=== PATIENT | male | born 1960 | race Caucasian/White ===

== ENCOUNTER → 2017-05-10 15:03 | Outpatient (CLI) | payer OTHER, SELFPAY ==
--- NOTE | 2017-05-10 15:17 | XR_ITS ---
EXAM: XR lumbar spine min 4V HISTORY: ITS.REASON: RT SCIATICA ORDERING PHYSICIAN: Desirae Tai PATIENT AGE: 56 years COMPARISON: None FINDINGS: There is severe degenerative disc disease at L2-L3 with mild retrolisthesis of L2 3 mm and kyphosis at that level. There is endplate sclerosis and osteophyte formation anteriorly. There is mild degenerative disc disease at L1-L2. No bony destructive process. No acute fracture. IMPRESSION: Severe degenerative disc disease at L2-L3 with kyphosis Mild degenerative disc disease L1-L2
== END ==
PROVIDERS: PCP Nurse Practitioner; Visit Provider Nurse Practitioner
DX: M54.41 Lumbago with sciatica, right side (principal)
CPT/HCPCS: 72110

== ENCOUNTER 2017-06-25 15:30 | Outpatient (RCR) | payer OTHER, SELFPAY ==
--- NOTE | 2017-05-20 09:56 | HMH.PTOPEV ---
Rehab Outpatient Evaluation Rehab OP Evaluation Start: 05/20/17 09:39 Freq: Status: Active Protocol: Document 05/20/17 09:40 CONNIE (Rec: 05/20/17 09:56 CONNIE [id number]) Electronically Signed By Logan Ferreira, PT 05/20/17 09:40 Outpatient Therapy Subjective History Subjective History Pt reports h/o chronic LBP w/ multiple exacerbations since the beginning of 2017. Pt reports R > L sided LBP with R LE radicular s/s from hip to ankle, as well as intermittent L calf mm area s/s. Pt reports recent Xrays were reported to reveal 'severe arthritis' in the low back. Chief Complaint Pain Stiff Paresthesia Symptom Type Ache Throb Sharp Dull Stabbing Burning Numbness Tingling Shooting Symptoms Relieved By OTC Meds Prescription Meds Symptoms Aggravated By Standing Physical Activity Walking Lifting Prior Functional Limitations Lifting Housework Standing Sitting Walking Current Functional Limitations Lifting Housework Standing Sitting Walking Symptom Description Constant but Variable Level of pain today (0-10) 3 Pain scale - at its best (0-10) 2 Pain scale - at its worst (0-10) 8 Lumbopelvic Eval Posture Thoracic Spine Posture Standing Position Neutral Lumbar Spine Posture Standing Position Flattened Assistive device Assistive Devices None / NA Palapation tenderness right lumbar spinal tenderness Yes: 2/4 paraspinal tenderness Yes: 3/4 buttock tenderness Yes: 3/4 Accessory Movement L2 bilateral L3 bilateral L4 bilateral L5 bilateral Range of Motion Lumbar Spine Active Flexion Range of 0-60 Motion (degrees)
== END 2017-06-25 15:31 | disposition home or self-care (01) ==
LOC: PT 15:30
PROVIDERS: Family Provider Nurse Practitioner; PCP Nurse Practitioner; Visit Provider Nurse Practitioner
DX: M54.31 Sciatica, right side (principal)
CPT/HCPCS: 97010; 97012; 97014; 97110; 97164; G0283

== ENCOUNTER → 2017-07-07 13:24 | Outpatient (CLI) | payer OTHER, SELFPAY ==
--- NOTE | 2017-07-07 13:27 | MR_ITS ---
MR lumbar spine wo con, MR 3-d myelogram/MRCP HISTORY: Bilateral Leg pain and burning. Rt sided LBP. ITS.REASON: SCIATICA OF RIGHT SIDE, DDD ORDERING PHYSICIAN: Desirae Tai PATIENT AGE: 56 years COMPARISON: X-Ray 05-10-17 TECHNIQUE: Standard multiplanar multiecho sequences are performed without contrast. 3-D MIP and myelographic images are also rendered and reviewed FINDINGS: The spinal cord ends at the L1 level. There is multilevel degenerative disc disease as outlined below. L1-L2: Degenerative disc disease with mild facet and ligamentum flavum hypertrophy. L2-L3: Severe degenerative disc disease with bulging disc along with facet and ligamentum hypertrophy. Anterior osteophytes are present at this level. Facet and ligamentum hypertrophy result in bilateral lateral recess and foraminal narrowing slightly greater on the right. Endplate sclerosis with subcortical cystic changes and slight reversal of the lumbar lordosis at this level. L3-L4: Mild facet and ligamentum hypertrophy with mild bilateral lateral recess and foraminal narrowing. L4-5: Minimal bulging disc slightly eccentric toward the left along with facet and ligamentum hypertrophy with bilateral lateral recess and foraminal narrowing. A small area of increased T2 signal is present along the anterior aspect of the thecal sac on the right contiguous with the disc suggesting a small right paracentral disc herniation with inferior extrusion contributing to the lateral recess narrowing. This abuts the L5 nerve root. This is best seen on the sagittal images. L5-S1: Degenerative disc disease with concentric bulging disc along with facet and ligamentum hypertrophy with moderate bilateral foraminal narrowing. There is narrowing of the canal at this level at 10 mm. IMPRESSION: 1. Multilevel lumbar spondylosis with degenerative disc disease with bulging disc along with facet and ligamentum hypertrophy with varying areas of lateral recess and foraminal narrowing. Please see above for detailed description at each level. 2. L2-L3: Severe degenerative disc disease with bulging disc along with facet and ligamentum hypertrophy. Anterior osteophytes are present at this level. Facet and ligamentum hypertrophy result in bilateral lateral recess and foraminal narrowing slightly greater on the right. 3. L4-5: Minimal bulging disc slightly eccentric toward the left along with facet and ligamentum hypertrophy with bilateral lateral recess and foraminal narrowing. A small area of increased T2 signal is present along the anterior aspect of the thecal sac on the right contiguous with the disc suggesting a small right paracentral disc herniation with inferior extrusion contributing to the lateral recess narrowing. This abuts the L5 nerve root. This is best seen on the sagittal images. 4. L5-S1: Degenerative disc disease with concentric bulging disc along with facet and ligamentum hypertrophy with moderate bilateral foraminal narrowing. There is narrowing of the canal at this level at 10 mm.
== END ==
PROVIDERS: Family Provider Nurse Practitioner; PCP Nurse Practitioner; Visit Provider Nurse Practitioner
DX: M54.31 Sciatica, right side (principal); M51.36 Other intervertebral disc degeneration, lumbar region
CPT/HCPCS: 72148; 76376

== ENCOUNTER → 2019-08-14 09:35 | Outpatient (CLI) | payer OTHER, SELFPAY ==
--- NOTE | 2019-08-14 09:46 | XR_ITS ---
PROCEDURE: XR SHOULDER LT MIN 2V CLINICAL INDICATION: shoulder pain COMPARISON: No exams were available for comparison FINDINGS: No fracture or dislocation. No lytic or blastic change. There is normal mineralization. The joint spaces are well-preserved. No significant degenerative/arthritic changes. No erosive changes evident. Other findings:None. IMPRESSION: No acute findings. Dictated by: Edi Cruz MD 08/14/2019 13:57 Electronically signed by Edi Cruz MD in [place] 08/14/2019 13:57
== END ==
PROVIDERS: PCP Family Medicine; Visit Provider Orthopaedic Surgery
DX: M25.512 Pain in left shoulder (principal)
CPT/HCPCS: 73030

== ENCOUNTER → 2019-09-25 16:51 | Outpatient (CLI) | payer OTHER, SELFPAY ==
[2019-09-27 15:23] LABS: Covid-19 Nasal PCR Sendout Lex NOT DETECTED
== END ==
PROVIDERS: PCP Family Medicine; Visit Provider Family Medicine
DX: Z03.818 Encounter for observation for suspected exposure to other biological agents ruled out (principal)
CPT/HCPCS: U0004

== ENCOUNTER → 2019-10-17 12:50 | Outpatient (CLI) | payer OTHER, SELFPAY ==
--- NOTE | 2019-10-17 13:14 | MR_ITS ---
PROCEDURE: MR SHOULDER LT W CON CLINICAL INDICATION: shoulder pain Shoulder pain [id number]. Been going to physical therapy. No injury. Pain when raising arm above head and when doing activities. Prior x-ray 08/14/2019 COMPARISON: CR XR SHOULDER LT MIN 2V from 08/14/2019 TECHNIQUE: Routine multiplanar multi echo sequences are performed following the intra-articular injection of contrast. FINDINGS: There is no evidence of abnormal localization of contrast that would indicate a complete rotator cuff tear. There is some irregularity of the undersurface the supraspinatus tendon distally consistent with a partial tear along the posterior and distal aspect. The infraspinatus, subscapularis, and teres minor tendons are intact. No evidence labral tear. The bicipital tendon is in place. There is mild acromioclavicular arthropathy with mild subacromial stenosis. There is some increased T2 signal involving the supraspinatus tendon suggesting tendinopathy/tendinosis. IMPRESSION: 1. Partial undersurface tear of the supraspinatus tendon with mild acromioclavicular arthropathy mild subacromial stenosis and mild tendinopathy/tendinosis of the supraspinatus tendon 2. Otherwise unremarkable MR arthrogram of the left shoulder Dictated by: Edi Cruz MD 10/21/2019 09:54 Edi Cruz MD in [place] 10/21/2019 09:54
--- NOTE | 2019-10-17 13:27 | IR_ITS ---
PROCEDURE: IR ARTHROGRAM SHOULDER LT CLINICAL INDICATION: LT SHOULDER PAIN COMPARISON: No exams were available for comparison FINDINGS: Technique: Following obtaining informed consent and time-out procedure under aseptic conditions and local anesthesia with 1 percent buffered lidocaine, a 22 gauge needle was inserted into the left shoulder joint capsule via the anterior subcoracoid approach. Approximately 12 cc of a mixture of gadolinium, Optiray 320, and lidocaine was injected and noted to fill the shoulder joint as expected. The patient tolerated the procedure well without evidence of immediate complication. Images were then obtained. The patient was then taken to MRI . Fluoroscopy time: 55 seconds There was normal localization of contrast within the shoulder joint. No evidence complete rotator cuff tear. No evidence adhesive capsulitis. IMPRESSION: Unremarkable and uneventful left shoulder arthrogram. Please see MRI report for further detail. Dictated by: Edi Cruz MD 10/21/2019 09:59 Edi Cruz MD in [place] 10/21/2019 09:59
== END ==
PROVIDERS: PCP Family Medicine; Visit Provider Orthopaedic Surgery
DX: M25.512 Pain in left shoulder (principal)
CPT/HCPCS: 73040; 73222; Q9967

== ENCOUNTER 2019-11-14 13:00 | Outpatient (RCR) | payer OTHER, SELFPAY ==
--- NOTE | 2019-08-17 11:41 | HMH.OTOPEV ---
OT Inpatient Evaluation Rehab OT Outpatient Eval Start: 08/17/19 11:28 Freq: Status: Active Protocol: Document 08/17/19 11:28 KURT (Rec: 08/17/19 11:41 KURT [id number]) Electronically Signed By Dang Padron OT 08/17/19 11:28 Outpatient Therapy Subjective History Subjective History Pt is a 58 year old male who reports to therapy for initial evaluation to L shoulder. Pt reports he started an exerise routine ~6 months ago and began having pain in the L shoulder ~6 weeks ago. Pt has been completing light weight exercise in upper body with high reps. After some shoulder testing, it appears pt has shoulder impingement at left shoulder. Pt demonstrates with decreased motion and slight decreased strength at left shoulder. Pt will continue to be seen twice a week in order to address all deficits. Chief Complaint Pain,Stiff,Weakness Symptom Type Ache,Throb,Sharp Symptoms Relieved By Nothing Symptoms Aggravated By Physical Activity,Lifting Prior Functional Limitations None Current Functional Limitations Reaching,Lifting,Housework, Recreation Activity Symptom Description Intermittent,Activity Dependent Level of pain today (0-10) 1 Pain scale - at its best (0-10) 0 Pain scale - at its worst (0-10) 5 Shoulder/Elbow Eval Shoulder Objective Measurements Shoulder ROM Left Shoulder Abduction Active Range of 112 degrees Motion (degrees) Shoulder Flexion Active Range of Motion 130 degrees (degrees) Query Text: Shoulder External Rotation Active Range 80 degrees of Motion (degrees) Shoulder Internal Rotation Active Range 45 degrees of Motion (degrees) pain with active ROM shoulder exam left standard pain with passive ROM shoulder exam left standard decreased ROM shoulder exam standard left Shoulder MMT Shoulder Abduction Strength Grade 4- Good- Shoulder Extension Strength Grade 4- Good- Shoulder Flexion Strength Grade 4- Good- Shoulder External Rotation Strength 4- Good- Grade Shoulder Internal Rotation Strength 4- Good- Grade
--- NOTE | 2019-09-19 14:17 | HMH.RHREAS ---
Rehab Reassessment Rehab OP Re-assessment Start: 09/19/19 13:00 Freq: Status: Active Protocol: Document 09/19/19 13:01 KURT (Rec: 09/19/19 14:04 KURT [id number]) Electronically Signed By Dang Padron OT 09/19/19 13:01 Rehab Re-assessment Subjective Subjective I go back to my doctor next week. Objective Objective Notes Pt continues to be seen twice a week in order to address all L shoulder deficits. Pt engaged in the L shoulder AROM /AAROM/STrengthening exercises . Pt also received modalities in order to decrease pain/ inflammation. Assessment Progress Assessment No Progress Assessment Notes Pt does not demonstrate progress since initial evalaution. Pt continues to have significant pain and does not show improvement in AROM or strength. Pt reports continued 4/10 pain at worse. He feels he may be 25% better since beginning therapy . However, he does report he isn't even using his L arm in order to decrease pain/ inflammation. Current AROM L shoulder Flex: 147 degrees Abd: 105 degrees ER: 80 degrees IR: 40 degrees Patient goals met n/a Goals Not Met STG and LTG Revised Goals Continue progressing toward all goals written on initial evaluation. Plan Plan Continue with OT plan of care. Pt returns to doctor on wednesday for re-evaluation. Frequency of Therapy 2x's a week Duration of therapy 4 more weeks Time and Billing Re-Eval Time 15 Re-Eval Billing Units 1 PHYSICIAN CERTIFICATION: I certify the specified therapy services for Jass Nicholas are required, authorized, and reviewed every 30 days.
== END 2019-11-14 14:00 | disposition home or self-care (01) ==
LOC: OT 13:00
PROVIDERS: Visit Provider Orthopaedic Surgery
DX: M25.512 Pain in left shoulder (principal)
CPT/HCPCS: 97014; 97035; 97110; 97164; 97166; G0283

== ENCOUNTER 2020-09-25 15:00 | Outpatient (RCR) | payer OTHER, SELFPAY | END 2020-09-25 15:05 | disposition home or self-care (01) | LOC: OT 15:00 | PROVIDERS: Visit Provider Orthopaedic Surgery Hand Surgery | DX: M72.0 Palmar fascial fibromatosis [Dupuytren] (principal) | CPT/HCPCS: 97014; 97018; 97035; 97110; 97140; 97165; G0283 ==

== ENCOUNTER → 2020-10-01 15:00 | Outpatient (POV) | payer OTHER, SELFPAY | PROVIDERS: Visit Provider Dermatology | DX: Z00.00 Encounter for general adult medical examination without abnormal findings (principal) ==

== ENCOUNTER → 2020-12-03 08:59 | Outpatient (POV) | payer OTHER, SELFPAY | PROVIDERS: Visit Provider Dermatology | DX: Z00.00 Encounter for general adult medical examination without abnormal findings (principal) ==

== ENCOUNTER 2023-05-20 10:52 | Outpatient (CLI) | payer OTHER, SELFPAY ==
--- NOTE | 2023-05-20 10:58 | XR_ITS ---
FINAL REPORT TECHNIQUE: 8 views, including flexion and extension views of the cervical spine. CLINICAL HISTORY: NECK PAIN COMPARISON: None FINDINGS: There is no fracture present. Mild and moderate degenerative change is present, with multilevel osteophytes. Postoperative changes are present in the anterior soft tissues at the base of the neck. There are presumed right carotid artery calcifications present. There is no evidence of motion with flexion and extension views. IMPRESSION: Mild and moderate degenerative change without evidence of motion on flexion and extension views. Presumed right carotid artery calcifications. Reviewed, Interpreted and Dictated by Hakan Galdamez III, MD Transcribed by Merary Clarke Authenticated and [facility]
== END 2023-05-20 23:59 ==
LOC: RAD 10:53
PROVIDERS: PCP Nurse Practitioner; Visit Provider Nurse Practitioner
DX: M54.2 Cervicalgia (principal)
CPT/HCPCS: 72052